=== PATIENT | female | born 1980 | race African-American/Black ===

== ENCOUNTER 2019-03-20 18:08 | Inpatient (IN) | payer MEDICAID ==
[~2019-03-20] VITALS: Ht 167.6 cm; Wt 121.1 kg
[2019-03-20] MEDS ORDERED: BENZOCAINE/LANOLIN/ALOE VERA SPRAY TOP PRN (19:45)
[2019-03-20] MEDS ORDERED: GLYCERIN/WITCH HAZEL LEAF MEDICATED PAD TOP PRN (19:45)
[2019-03-20] MEDS ORDERED: IBUPROFEN 400MG TABLET PO PRN (19:45)
[2019-03-20] MEDS ORDERED: ACETAMINOPHEN WITH CODEINE 300/30MG TABLET PO PRN ×2 (19:45)
[2019-03-20] MEDS ORDERED: BISACODYL 10MG SUPP PR PRN (19:45)
[2019-03-20] MEDS ORDERED: METHYLERGONOVINE MALEATE 0.2 MG/ML IM PRN (19:45)
[2019-03-20] MEDS ORDERED: IBUPROFEN 800MG TABLET PO PRN (19:45)
[2019-03-20 19:57] LABS: HEMATOCRIT. 25.8 % (36.0-48.0); HEMOGLOBIN. 8.4 g/dL (12.0-16.0); MEAN CORPUSCULAR HEMOGLOBIN 29.6 pg (28.0-32.0); MEAN CORPUSCULAR VOLUME 91.1 fL (81.0-99.0); MEAN PLATELET VOLUME 9.7 fl (7.4-10.4); PLATELET 183 x1000/uL (130-400); RED BLOOD CELL COUNT 2.83 mill/uL (4.2-5.4); RED CELL DISTRIBUTION WIDTH 14.4 % (11.6-14.6)
[2019-03-20 20:00] VITALS: BP 122/64
[2019-03-20 20:17] LABS: D-DIMER 8.75 mg/L FEU (<0.50); PARTIAL THROMBOPLASTIN TIME 28.7 sec (23.4-31.0)
[2019-03-20 20:32] LABS: PLATELET ESTIMATE NORMAL
[2019-03-20] MEDS ORDERED: DOCUSATE SODIUM 100MG CAPSULE PO SCH (21:00)
[2019-03-20] MEDS ORDERED: SIMETHICONE 80MG TABLET CHEW PO SCH (21:00)
[2019-03-20] MEDS ORDERED: MAGNESIUM/ALUMINUM HYDROXIDE/SIMETHICONE 30ML UDC PO SCH (21:00)
[2019-03-21] MEDS ORDERED: FERROUS SULFATE 325MG TABLET PO SCH (09:00)
[2019-03-21] MEDS ORDERED: PRENATAL VIT/FE FUMARATE/FA TABLET PO SCH (09:00)
== END 2019-03-20 21:30 | disposition home or self-care (01) | DRG 560 ==
LOC: OBSVTOIN 18:08 → 8 EST LDRP 18:08
PROVIDERS: ADMIT Obstetrics & Gynecology; ATTEND Obstetrics & Gynecology
DX: O72.0 Third-stage hemorrhage (principal)
CPT/HCPCS: 36415; 80051; 85025; 85379; 85384; 99281; G0378